=== PATIENT | male | born 1945 | race Hispanic/Latino ===

== ENCOUNTER 2020-04-29 07:00 | Day surgery (SDC) | payer MEDICARE ==
[2020-04-26 13:30] VITALS: BP 158/85
[2020-04-26 14:18] LABS: BASOPHILS % (AUTO) 0.5 % (0.0-5.0); EOSINOPHILS % (AUTO) 2.7 % (0.0-8.0); HEMATOCRIT 39.8 % (42-54); LYMPHOCYTES % (AUTO) 33.9 % (21.0-51.0); MEAN CORPUSCULAR HEMOGLOBIN 29.3 pg (27.0-33.0); MEAN CORPUSCULAR HGB CONC 32.7 g/dL (32.0-36.0); MEAN CORPUSCULAR VOLUME 89.6 fL (79-99); MONOCYTES % (AUTO) 11.4 % (3.0-13.0); NEUTROPHILS % (AUTO) 50.8 % (40.0-77.0); PLATELET COUNT (AUTO) 198 K/uL (130-400); RED BLOOD CELL COUNT(AUTO) 4.44 MIL/uL (4.50-6.20); WHITE BLOOD COUNT (AUTO) 4.1 K/uL (4.8-10.8)
[2020-04-26 14:30] LABS: POTASSIUM 4.1 mmol/L (3.5-5.1)
[~2020-04-29] VITALS: Ht 172.7 cm; Wt 126.0 kg
[2020-04-29] VITALS (15 sets, daily range): BP systolic 132–157; BP diastolic 65–84
[2020-04-29] MEDS: CEFTRIAXONE 1G VIAL IVP SCH ×2 (06:00→08:35)
[~2020-04-29 07:00] MED LIST: ALLO300T2 PO; LOSA1TAB54 PO; METF-446 PO; SIMV-43 PO; TAMS-1 PO
[2020-04-29] MEDS ORDERED: 0.9%NACL 1000ML 1,000 ML IV ONE (07:14)
[2020-04-29] MEDS ORDERED: ONDANSETRON 4MG INJ ONE (08:06)
[2020-04-29] MEDS ORDERED: FENTANYL CITRATE PF 50 MCG/1 ML 2ML VIAL ONE ×2 (08:06→09:34)
[2020-04-29] MEDS ORDERED: MIDAZOLAM HCL 1 MG/ML 2ML VIAL ONE (08:06)
[2020-04-29] MEDS ORDERED: PROPOFOL 10 MG/ML 20ML VIAL IV ONE ×2 (08:06→09:47)
[2020-04-29] MEDS ORDERED: LIDOCAINE PF 100MG/5ML (2%) SYRINGE 5ML ONE (08:06)
[2020-04-29] MEDS ORDERED: ROCURONIUM 10MG/1ML SYR 10 MG/ML ML ONE (08:09)
[2020-04-29] MEDS ORDERED: OPIUM/BELLADONNA ALKALOIDS 1 EACH SUPP.RECT RC ONE (09:01)
[2020-04-29] MEDS ORDERED: EPHEDRINE SULFATE 50 MG/ML AMPULE ONE (09:17)
[2020-04-29] MEDS ORDERED: GLYCOPYRROLATE 1 MG/5 ML SYRINGE ONE (09:41)
[2020-04-29] MEDS ORDERED: NEOSTIGMINE 5MG/5ML SYR IV ONE (09:42)
[2020-04-29] MEDS ORDERED: PHENAZOPYRIDINE HCL 200 MG TABLET ONE (11:00)
== END 2020-04-29 11:40 | disposition home or self-care (01) ==
LOC: DAH 07:00
PROVIDERS: ATTEND Urology
DX: N40.1 Benign prostatic hyperplasia with lower urinary tract symptoms (principal); Z20.822 Contact with and (suspected) exposure to COVID-19; N41.1 Chronic prostatitis; R35.1 Nocturia; N35.819 Other urethral stricture, male, unspecified site; E66.01 Morbid (severe) obesity due to excess calories; E11.9 Type 2 diabetes mellitus without complications; I10 Essential (primary) hypertension; M10.9 Gout, unspecified; Z79.899 Other long term (current) drug therapy; Z79.84 Long term (current) use of oral hypoglycemic drugs; Z87.891 Personal history of nicotine dependence; Z87.438 Personal history of other diseases of male genital organs; Z68.41 Body mass index [BMI] 40.0-44.9, adult
CPT/HCPCS: 36415; 52648; 80048; 82948 ×2; 85025; 88305; 93005; A4215; A4221; A4222; A4223; A4340; A4354; A4358; A4663; A6260; C9803; J0696; J2001; J2250; J2405; J2704 ×2; J2710; J3010 ×2; J3490 ×2; J7030; J7120; U0003

== ENCOUNTER 2020-04-30 10:56 | Emergency (ER) | payer MEDICARE ==
[2020-04-30 12:04] LABS: BASOPHILS % (AUTO) 0.2 % (0.0-5.0); EOSINOPHILS % (AUTO) 0.2 % (0.0-8.0); HEMATOCRIT 37.4 % (42-54); LYMPHOCYTES % (AUTO) 15.4 % (21.0-51.0); MEAN CORPUSCULAR HEMOGLOBIN 29.1 pg (27.0-33.0); MEAN CORPUSCULAR HGB CONC 32.9 g/dL (32.0-36.0); MEAN CORPUSCULAR VOLUME 88.6 fL (79-99); MONOCYTES % (AUTO) 9.2 % (3.0-13.0); NEUTROPHILS % (AUTO) 74.7 % (40.0-77.0); PLATELET COUNT (AUTO) 179 K/uL (130-400); RED BLOOD CELL COUNT(AUTO) 4.22 MIL/uL (4.50-6.20); RED CELL DISTRIBUTION WIDTH 15.3 % (11.0-15.5); WHITE BLOOD COUNT (AUTO) 6.4 K/uL (4.8-10.8)
[2020-04-30 12:13] LABS: POTASSIUM 3.8 mmol/L (3.5-5.1)
== END 2020-04-30 12:56 | disposition home or self-care (01) ==
LOC: EDH 10:56
DX: T83.098A Other mechanical complication of other urinary catheter, initial encounter (principal); Y73.8 Miscellaneous gastroenterology and urology devices associated with adverse incidents, not elsewhere classified; Y92.89 Other specified places as the place of occurrence of the external cause
CPT/HCPCS: 36415; 80048; 85025; 99282

== ENCOUNTER 2020-04-30 18:11 | Emergency (ER) | payer MEDICARE ==
[2020-04-30] MEDS ORDERED: OPIUM/BELLADONNA ALKALOIDS 1 EACH SUPP.RECT RC ONE (19:54)
== END 2020-04-30 20:12 | disposition home or self-care (01) ==
LOC: EDH 18:11
DX: N32.89 Other specified disorders of bladder (principal); I10 Essential (primary) hypertension; E11.9 Type 2 diabetes mellitus without complications; L40.9 Psoriasis, unspecified
CPT/HCPCS: 99282

== ENCOUNTER 2020-05-01 15:27 | Emergency (ER) | payer MEDICARE ==
[2020-05-01] MEDS ORDERED: BISACODYL 10 MG SUPP.RECT RC ONE (17:09)
[2020-05-01] MEDS ORDERED: OPIUM/BELLADONNA ALKALOIDS 1 EACH SUPP.RECT RC ONE (17:13)
== END 2020-05-01 18:44 | disposition home or self-care (01) ==
LOC: EDH 15:27
DX: N32.89 Other specified disorders of bladder (principal); I10 Essential (primary) hypertension; E11.9 Type 2 diabetes mellitus without complications; L40.9 Psoriasis, unspecified; Z98.890 Other specified postprocedural states
CPT/HCPCS: 99282

== ENCOUNTER 2022-07-10 19:05 | Emergency (ER) | payer MEDICARE ==
[~2022-07-10] VITALS: Ht 175.3 cm; Wt 121.1 kg
[2022-07-10] MEDS ORDERED: LIDOCAINE HCL 1% 20 ML VIAL ONE (21:47)
[2022-07-10] MEDS ORDERED: TETANUS/DIPHTHERIA TOXOID [ADULT] 0.5 ML VIAL IM ONE (22:30)
[2022-07-11 00:16] VITALS: BP 166/75
== END 2022-07-11 00:17 | disposition home or self-care (01) ==
LOC: EDH 19:05
DX: S51.812A Laceration without foreign body of left forearm, initial encounter (principal); E11.9 Type 2 diabetes mellitus without complications; E78.00 Pure hypercholesterolemia, unspecified; I10 Essential (primary) hypertension; W01.198A Fall on same level from slipping, tripping and stumbling with subsequent striking against other object, initial encounter; Y93.89 Activity, other specified; Y92.89 Other specified places as the place of occurrence of the external cause; Y99.8 Other external cause status
CPT/HCPCS: 73090; 90471; 90714